=== PATIENT | male | born 1955 | race Caucasian/White ===

== ENCOUNTER 2021-07-03 11:17 | Emergency (ER) | payer MEDICARE, BC ==
[~2021-07-03] VITALS: Ht 177.8 cm; Wt 70.5 kg
[2021-07-03 11:53] VITALS: BP 117/80
[2021-07-03] MEDS ORDERED: LEVO750T46 PO (15:24)
== END 2021-07-03 16:09 | disposition home or self-care (01) ==
LOC: ER 11:18
DX: B34.9 Viral infection, unspecified (principal); Z20.822 Contact with and (suspected) exposure to COVID-19; I51.9 Heart disease, unspecified; Z88.0 Allergy status to penicillin
CPT/HCPCS: 71045; 87635; 99284; C9803

== ENCOUNTER 2025-08-11 14:51 | Outpatient (CLI) | payer MEDICARE, BC ==
--- NOTE | 2025-08-11 15:54 | RADIOLOGY REPORT ---
EXAM: DI HAND,LIMITED (AP/LAT), DI WRIST,LIMITED (AP/LAT), DI WRIST,LIMITED (AP/LAT), DI HAND,LIMITED (AP/LAT) CLINICAL INDICATION: ELEVATED RHEUMATOID FACTOR ,BILATERAL HANDS TECHNIQUE: DI HAND,LIMITED (AP/LAT), DI WRIST,LIMITED (AP/LAT), DI WRIST,LIMITED (AP/LAT), DI HAND,LIMITED (AP/LAT) Comparison: DI WRIST,LIMITED (AP/LAT) on DOS: 08/11/25 FINDINGS/IMPRESSION: There is no evidence of acute fracture or dislocation. 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 The alignment is anatomical. There is no radiopaque foreign body.
--- NOTE | 2025-08-11 15:54 | RADIOLOGY REPORT ---
EXAM: DI HAND,LIMITED (AP/LAT), DI WRIST,LIMITED (AP/LAT), DI WRIST,LIMITED (AP/LAT), DI HAND,LIMITED (AP/LAT) CLINICAL INDICATION: ELEVATED RHEUMATOID FACTOR ,BILATERAL HANDS TECHNIQUE: DI HAND,LIMITED (AP/LAT), DI WRIST,LIMITED (AP/LAT), DI WRIST,LIMITED (AP/LAT), DI HAND,LIMITED (AP/LAT) Comparison: None FINDINGS/IMPRESSION: There is no evidence of acute fracture or dislocation. 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 The alignment is anatomical. There is no radiopaque foreign body.
--- NOTE | 2025-08-11 15:54 | RADIOLOGY REPORT ---
EXAM: DI HAND,LIMITED (AP/LAT), DI WRIST,LIMITED (AP/LAT), DI WRIST,LIMITED (AP/LAT), DI HAND,LIMITED (AP/LAT) CLINICAL INDICATION: ELEVATED RHEUMATOID FACTOR ,BILATERAL HANDS TECHNIQUE: DI HAND,LIMITED (AP/LAT), DI WRIST,LIMITED (AP/LAT), DI WRIST,LIMITED (AP/LAT), DI HAND,LIMITED (AP/LAT) Comparison: DI HAND,LIMITED (AP/LAT) on DOS: 08/11/25 FINDINGS/IMPRESSION: There is no evidence of acute fracture or dislocation. 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 The alignment is anatomical. There is no radiopaque foreign body.
== END 2025-08-11 23:59 | disposition home or self-care (01) ==
LOC: RAD 14:51
PROVIDERS: ATTEND Student in an Organized Health Care Education/Training Program
DX: M18.0 Bilateral primary osteoarthritis of first carpometacarpal joints (principal); M19.041 Primary osteoarthritis, right hand; M19.042 Primary osteoarthritis, left hand; M20.091 Other deformity of right finger(s)
CPT/HCPCS: 73100; 73120